=== PATIENT | male | born 1990 | race Hispanic/Latino ===

== ENCOUNTER 2017-12-12 23:08 | Emergency (ER) | payer SELFPAY ==
[2017-12-13] MEDS ORDERED: ORPHENADRINE C100 MG PO (01:36)
[2017-12-13] MEDS ORDERED: DICLOFENAC SODI75 M2 PO (01:36)
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
[2017-12-13 02:22] VITALS: BP 133/90
== END 2017-12-13 02:31 ==
LOC: ERH 23:08 → EDSEX 23:36 → ERH 23:36
DX: S39.012A Strain of muscle, fascia and tendon of lower back, initial encounter (principal); V49.50XA Passenger injured in collision with unspecified motor vehicles in traffic accident, initial encounter; Y92.410 Unspecified street and highway as the place of occurrence of the external cause